=== PATIENT | female | born 1955 | race Caucasian/White ===

== ENCOUNTER 2016-12-18 07:31 | Day surgery (SDC) | payer MEDICARE ==
[~2016-12-18 07:31] MED LIST: HYDROCODONE-APA1 TAB PO; LEXAPRO10 MG PO; OCUVITE TABLET1 TA1 PO; SYNTHROID88 MCG PO; TRAZODONE HCL50 MG PO
[2016-12-18 08:28] LABS: HEMATOCRIT 42.4 % (36.0-48.0); HEMOGLOBIN 13.9 g/dL (12-16); MCH 30.1 pg (26.0-34.0); MCHC 32.8 g/dL (31.0-37.0); MCV 91.8 fL (80.0-100.0); MEAN PLATELET VOLUME 10.8 fL (7.4-10.4); RBC 4.62 10x6/uL (4.00-5.40); RDW 13.7 % (11.5-14.5); WBC 5.3 10x3/uL (4.8-10.8)
[2016-12-18] MEDS ORDERED: DILAUDID2 MG PO (10:15)
== END 2016-12-18 11:35 | disposition home or self-care (01) ==
LOC: D.OPS 07:31
PROVIDERS: Anesthesiology
DX: M75.02 Adhesive capsulitis of left shoulder (principal); M25.512 Pain in left shoulder; E03.9 Hypothyroidism, unspecified; R00.1 Bradycardia, unspecified; Z01.812 Encounter for preprocedural laboratory examination

== ENCOUNTER 2017-02-22 16:00 | Emergency (ER) | payer MEDICARE ==
[2016-12-18 08:10] VITALS: BMI 27.5
[~2017-02-22 16:00] MED LIST changes: +DILAUDID2 MG PO
== END 2017-02-22 18:44 | disposition home or self-care (01) ==
LOC: D.ER 16:00
DX: S89.92XA Unspecified injury of left lower leg, initial encounter (principal); W19.XXXA Unspecified fall, initial encounter; Y93.89 Activity, other specified; Y92.89 Other specified places as the place of occurrence of the external cause; F32.9 Major depressive disorder, single episode, unspecified; E03.9 Hypothyroidism, unspecified

== ENCOUNTER → 2018-05-04 20:33 | Outpatient (CLI) | payer MEDICARE ==
[2016-12-18 08:10] VITALS: BMI 27.5
== END | disposition home or self-care (01) ==
LOC: D.MAMMO 04-30 13:30
DX: Z12.31 Encounter for screening mammogram for malignant neoplasm of breast (principal)

== ENCOUNTER 2018-05-21 19:00 | Outpatient (CLI) | payer MEDICARE ==
[2016-12-18 08:10] VITALS: BMI 27.5
== END 2018-05-21 23:59 | disposition home or self-care (01) ==
LOC: D.MAMMO 19:00
DX: R92.8 Other abnormal and inconclusive findings on diagnostic imaging of breast (principal)

== ENCOUNTER 2020-10-22 05:10 | Observation (INO) | payer OTHER ==
[2020-10-17 11:10] LABS: BILIRUBIN NEGATIVE (NEGATIVE); KETONE NEGATIVE (NEGATIVE); NITRITE NEGATIVE (NEGATIVE)
[2020-10-17 11:11] LABS: BACTERIA FEW HPF (NONE SEEN); SQUAMOUS EPITHELIAL 0-5 HPF (0-4)
[2020-10-17 13:51] LABS: ANION GAP 11.5 mmol/L (8-16); CALCIUM 9.6 mg/dL (8.5-10.1); CARBON DIOXIDE 28.5 mmol/L (21.0-32.0); CREATININE - SERUM 1.2 mg/dL (0.6-1.3)
[2020-10-17 13:56] LABS: HEMATOCRIT 39.5 % (36.0-48.0); HEMOGLOBIN 12.6 g/dL (12-16); IMMATURE GRANULOCYTES 0.1 % (0-5); LYMPHOCYTE ABS# 1.57 10x3/uL (1.18-3.74); LYMPHOCYTES 22.4 % (15-50); MCH 29.4 pg (26.0-34.0); MCHC 31.9 g/dL (31.0-37.0); MCV 92.1 fL (80.0-100.0); MEAN PLATELET VOLUME 10.4 fL (7.4-10.4); MONOCYTES 9.6 % (2-11); NEUTROPHIL ABS# 4.48 10x3/uL (1.56-6.13); NEUTROPHILS 63.9 % (40-80); PLATELET COUNT 367 10x3/uL (130-400); RBC 4.29 10x6/uL (4.00-5.40); RDW 14.1 % (11.5-14.5)
[2020-10-17 14:00] LABS: APTT 32.3 SECONDS (22.8-39.4); INR 1.09 (0.85-1.17)
[2020-10-22] VITALS (13 sets, daily range): BP systolic 97–133; BP diastolic 48–70; Ht 162.6 cm; Wt 68.2 kg
[~2020-10-22] VITALS: Ht 162.6 cm; Wt 68.2 kg
--- NOTE | ~2020-10-22 | OP ---
PATIENT NAME: JANIE GALVAN MEDICAL RECORD: [id number] :53 LOCATION:D. D.1211 ADMISSION DATE:10/22/20 SURGEON: CELINE MAX MD DATE OF OPERATION: 10/22/2020 PREOPERATIVE DIAGNOSIS: Osteoarthritis, right knee. POSTOPERATIVE DIAGNOSIS: Osteoarthritis, right knee. PROCEDURE PERFORMED: Right total knee arthroplasty. INDICATIONS: Ms. Galvan is a 65-year-old female with history of right knee pain and arthritis. She has been dealing with this for some time now and symptoms are getting progressively worse. She has elected to undergo surgery for right total knee arthroplasty. Risks, benefits, and alternatives of surgery were discussed with the patient and consent was obtained. DESCRIPTION OF PROCEDURE: The patient was met in the holding area where her identity and confirmation of procedure was performed. The right lower extremity was marked. She was taken to the operating room where she was placed supine on the operating table. Anesthesia was administered. Tourniquet was applied to the right thigh and the right leg was prepped and draped in a sterile fashion. The patient received preoperative antibiotics as well as TXA and a timeout was performed prior to initiating the case. Upon initiation of the case, leg was exsanguinated and the tourniquet was raised. Total tourniquet time was approximately 90 minutes. A medial parapatellar approach was utilized for exposure. The knee was placed in flexion. An incision was made over the anterior knee, dissecting down to the extensor mechanism. The quad tendon was then split along its medial border curved medial around the patella and down the medial border of the patellar tendon. The knee was then taken into extension. Tissue from the posterior fat pad of the patella and over the anterior distal femur was excised. Flap tissue off the medial tibial plateau was elevated and a portion of the medial meniscus was excised. The patella was everted and the knee was replaced in flexion. Retractors were placed medial and lateral. The cruciate ligaments were excised and Vasiliy's line was marked. We then drilled our femoral tunnel and placed our intramedullary femoral guide. The distal femoral cutting block was pinned into position. The distal femur cut was then completed. The femur was sized to a size 4 and the 4-in-1 cutting block was pinned into place. Our anterior, posterior, and chamfer cuts were completed. The bony pieces were removed and osteophytes were removed from around the distal femur. Our trial femoral box cut was then placed and pinned into position. A box cut was completed using a reciprocating saw and osteotome. The bony pieces were removed and we then turned our attention to the tibia. PCL retractor was placed. The remainder of the medial and lateral menisci were excised. Extramedullary tibial guide was placed and adjusted for alignment taking 4 mm off the medial tibial plateau. Tibial cutting block was pinned into position and alignment was confirmed. We then completed our proximal tibial cut. The bony piece was removed and the tibia was sized to a size 3. The tibial plate was pinned into position. We then placed our femoral trial and trialed with a size 9 and 10 polyethylene. Size 10 poly had good fit and stability throughout range of motion. We then turned our attention to the patella. The patella was everted. Cautery was used around the circumference. Patella was cut to the floor of the lateral facet, sized to a size 29 and drilled. The patella was everted. The knee was replaced into flexion. Our poly and femoral roll trial was removed. Tibia was retracted anteriorly and OPERATIVE REPORT [id number] JANIE GALVAN prepared using the punch. The tibial trial was also removed and the laminar senior support analyst was inserted. Osteophytes were removed posterior aspect of the femur, both medial and lateral. Knee was then taken into extension, irrigated thoroughly with saline. Joint solution was injected around the capsule proximal tibia and the distal femur. The knee was replaced into flexion and the bony ends were dried. Final components were cemented into place. Trial poly was placed. The knee was held in full extension while the cement was allowed to dry. The patella was held with the patellar clamp. Excess cement was removed throughout this process. Once the cement was dry, the knee again taken through range of motion and felt to have good fit and stability with the size 10 poly and our final size 10 posterior stabilized poly was placed and tapped into position. It was again taken through range of motion, had good fit and stability throughout. Knee was irrigated thoroughly with saline. A drain was placed in the lateral gutter. The extensor mechanism was then closed with Vicryl suture. Subcutaneous tissues were irrigated thoroughly with saline. Subcutaneous tissue was closed with 2-0 Vicryl and the skin was closed with belinda. A sterile dressing was placed. The patient was turned back over to anesthesia where she was awakened, extubated, and taken to recovery room in stable condition. POSTOPERATIVE PLAN: The patient is going to be admitted for routine postoperative care. We started 24 hours of antibiotics. Will be started on DVT prophylaxis tomorrow. Physical therapy will be consulted to assist with mobilization, weightbearing as tolerated, right lower extremity. PLAN: Home with home health upon discharge. ANESTHESIA: Spinal with peripheral nerve block. COMPLICATIONS: None. ESTIMATED BLOOD LOSS: 50 mL. TRANSINT:[id number] Voice Confirmation ID: [id number] DOCUMENT ID: [id number] CELINE MAX MD CC: [id number] DICTATION DATE: 10/22/201811 LOSS PREVENTION ASSOCIATE: 10/22/20 2305 ADM IN [place] [id number] [place] [id number]
[~2020-10-22 05:10] MED LIST changes: +BI-FLEX PO; +ELDERBERRY PO; +HYDROCODON-ACE1 EAC7 PO; +VITAMIN D325 MC1 PO
--- NOTE | 2020-10-22 19:00 | NUR ---
PATIENT RESTING IN BED WITH NO S/S OF DISTRESS. GUEST AT BEDSIDE. VSS. PLACED PATIENT ON CPM TO RIGHT KNEE. PLACED ICE PACK TO PATIENT'S KNEE. PATIENT DENIES OTHER NEEDS AT THIS TIME. BED IN LOWEST POSITION, CALL LIGHT WITHIN REACH, AND BED ALARM ON. ENCOURAGED PATIENT TO CALL WITH NEEDS.
--- NOTE | 2020-10-22 20:22 | NUR ---
ADMINISTERED MEDS PER ORDERS. PATIENT KJ WELL. ENCOURAGED TO CALL WITH NEEDS.
[2020-10-23 00:49] VITALS: BP 101/50
[2020-10-23 05:05] VITALS: BP 107/56
--- NOTE | 2020-10-23 07:00 | NUR ---
RECEIVED PT SITTING UP IN BED. CPM IN PLACE TO RIGHT LOWER EXTREMITY. CPM REMOVED AT THIS TIME PER MD ORDER OF 2 HOUR PLACEMENT. REPORTS PAIN 3/10 AT THIS TIME, BUT VOICES "ITS NOT BAD." SCD AND JEANINE HOSE IN PLACE TO BILAT EXTREMITIES. DRESSING TO RIGHT LOWER EXTREMITY C/D/I. IV TO LEFT HAND WITH 1/2 NS @ 100ML/HR INFUSING VIA PUMP. SITE WITHOUT REDNESS OR EDEMA. DAVOL DRAIN INTACT TO RIGHT KNEE WITH SCANT AMOUNT OF BLODDY DRAINAGE. DENIES FURTHER NEEDS AT THIS TIME. CL WITHIN REACH. ENCOURAGED TO CALL WITH NEEDS. CONTINUE POC
[2020-10-23 07:32] LABS: HEMATOCRIT 32.5 % (36.0-48.0); HEMOGLOBIN 10.1 g/dL (12-16); MCH 28.7 pg (26.0-34.0); MCHC 31.1 g/dL (31.0-37.0); MCV 92.3 fL (80.0-100.0); MEAN PLATELET VOLUME 10.3 fL (7.4-10.4); RBC 3.52 10x6/uL (4.00-5.40); RDW 13.9 % (11.5-14.5); WBC 9.8 10x3/uL (4.8-10.8)
[2020-10-23 08:11] VITALS: BP 125/58
--- NOTE | 2020-10-23 18:11 | MORECARE ---
CASE MANAGEMENT DISCHARGE SUMMARY PATIENT: JANIE GALVAN UNIT: [id number] ADM DATE: 10/22/20 AGE: 65 : 54 SEX: F ROOM/BED: D.1211 AUTHOR: MARSHALL HELM PHYSICIAN: REFERRING PHYSICIAN: CELINE MAX MD DATE OF SERVICE: 10/23/20 Discharge Plan Patient Name: JANIE GALVAN Facility: [facility]:[place] : 1955 Planned Disposition: Home with Home Health Anticipated Discharge Date: 10/25/20 Discharge Date: Expected LOS: 3 Initial Reviewer: [email or web address] Initial Review Date: 10/22/2020 Generated: 10/23/20 7:10 pm External Providers External Provider: [facility] Next Contact Date: Service Request Date: Service Type: Resolution: Reviewer: Comments: Patient Name: JANIE GALVAN Page [phone] at 1811 All edits/amendments must be made on the electronic document DICTATION DATE: 10/23/201809 COIL WRAPPER: JESSICA 10/23/201809 RPT#: [id number] CO DATE: STATUS: ADM IN [place] [address] [place] [address] END OF REPORT
--- NOTE | 2020-10-23 18:18 | MORECARE ---
CASE MANAGEMENT DISCHARGE SUMMARY PATIENT: JANIE GALVAN UNIT: [id number] ADM DATE: 10/22/20 AGE: 65 : 54 SEX: F ROOM/BED: D.1211 AUTHOR: ALICJA,DOC PHYSICIAN: REFERRING PHYSICIAN: CELINE MAX MD DATE OF SERVICE: 10/23/20 Discharge Plan Patient Name: JANIE GALVAN Facility: [facility]:[place] : 1955 Planned Disposition: Home with Home Health Anticipated Discharge Date: 10/25/20 Discharge Date: Expected LOS: 3 Initial Reviewer: REEMA Initial Review Date: 10/22/2020 Generated: 10/23/20 7:17 pm Comments DCP- Discharge Planning Updated by REEMA: Juan Antonio Quan on 10/23/20 5:[address] CM met with patient to complete DC plan and to evaluate needs. Patient lives at home with family. Patient stated that she does not know which Home Health with PT service to use but would like any service that will come to [facility]. Patient stated that she will need a walker and bedside commode. Patient declined SNF and IPR. [facility] for [facility] and [facility] signed and placed on chart. Patient voiced no other needs at this time and is satisfied with DC plan. Clinicals faxed to [facility] and Equipment order faxed to [facility]. Spoke with Juan Antonio of [facility], equipment will be delivered in am. Spoke with Stephie of [facility], SOC will be determined in morning after clinicals are evaluated. Transportation provider at discharge will be with daughter, Radha Parrish ([phone]). DC IMM delivered, explained, signed by the patient, and placed in chart. Signed form also left with the patient. CM will continue to follow and will assist as needed with dc plans/needs. DCPIA - Discharge Planning Initial Assessment Updated by REEMA: Juan Antonio Quan on 10/23/20 6:11 pm * Is the patient Alert and Oriented? Yes * How many steps to enter\exit or inside your home? 5/0 * PCP MARIANO * [facility] * Preadmission Environment Home with Family * ADLs Independent * Equipment None * Other Equipment n/a * List name and contact numbers for known caregivers / representatives who currently or will assist patient after discharge: Noreen Parrish (dtr)[phone] * Verbal permission to speak to the caregivers and representatives has been obtained from the patient. Yes * Community resources currently utilized None * Please name any agencies selected above. n/a * Additional services required to return to the preadmission environment? Yes * Can the patient safely return to the preadmission environment? Yes * Has this patient been hospitalized within the prior 30 days at any hospital? No Coverage Notice Reviewer: [email or web address] Quan Notice Issued Date-Time: 10/23/2020 17:00 Notice Type: IM Discharge Notice Notice Delivered To: Patient Relationship to Patient: Self Front End Developer Javascript Html Css Name: Delivery Method: HAND - Hand Delivered Claudette Days: Prior Verbal Notification: Recipient Understood Notice: Yes Recipient Signature: Yes Med Rec Note Co-signed by Attending: Coverage Notice Comment: DC IMM delivered, explained, signed by the patient, and placed in chart. Reviewer: [id number] Bereket Quan Notice Issued Date-Time: 10/23/2020 17:00 Notice Type: Patient Choice Letter Notice Delivered To: Patient Relationship to Patient: Self Front End Developer Javascript Html Css Name: Delivery Method: HAND - Hand Delivered Claudette Days: Prior Verbal Notification: Recipient Understood Notice: Yes Recipient Signature: Yes Med Rec Note Co-signed by Attending: Coverage Notice Comment: [facility] Last DP export: 10/23/20 5:11 pm Patient Name: JANIE GALVAN Page [phone] at 1818 All edits/amendments must be made on the electronic document DICTATION DATE: 10/23/201816 HOTEL CASINO FLOORPERSON: JESSICA 10/23/201816 RPT#: [id number] DC DATE: STATUS: ADM IN [facility] [address] [place] [address] END OF REPORT
--- NOTE | 2020-10-23 19:44 | MORECARE ---
CASE MANAGEMENT DISCHARGE SUMMARY PATIENT: JANIE GALVAN UNIT: [id number] ADM DATE: 10/22/20 AGE: 65 : 54 SEX: F ROOM/BED: D.1211 AUTHOR: ALICJA,DOC PHYSICIAN: REFERRING PHYSICIAN: CELINE MAX MD DATE OF SERVICE: 10/23/20 Discharge Plan Patient Name: JANIE GALVAN Facility: [facility]:[place] : 1955 Planned Disposition: Home with Home Health Anticipated Discharge Date: 10/25/20 Discharge Date: Expected LOS: 3 Initial Reviewer: REEMA Initial Review Date: 10/22/2020 Generated: 10/23/20 8:43 pm Comments DCP- Discharge Planning Updated by REEMA: Juan Antonio Quan on 10/23/20 5:[address] CM met with patient to complete DC plan and to evaluate needs. Patient lives at home with family. Patient stated that she does not know which Home Health with PT service to use but would like any service that will come to [facility]. Patient stated that she will need a walker and bedside commode. Patient declined SNF and IPR. [place] for [facility] [facility] and [facility] signed and placed on chart. Patient voiced no other needs at this time and is satisfied with DC plan. Clinicals faxed to [facility] and Equipment order faxed to [facility] Spoke with Juan Antonio of [employer] equipment will be delivered in am. Spoke with Stephie of [facility], SOC will be determined in morning after clinicals are evaluated. Transportation provider at discharge will be with daughter, Radha Parrish ([phone]). DC IMM delivered, explained, signed by the patient, and placed in chart. Signed form also left with the patient. CM will continue to follow and will assist as needed with dc plans/needs. DCPIA - Discharge Planning Initial Assessment Updated by REEMA: Juan Antonio Quan on 10/23/20 6:11 pm * Is the patient Alert and Oriented? Yes * How many steps to enter\exit or inside your home? 5/0 * PCP MARIANO * Pharm[facility] * Preadmission Environment Home with Family * ADLs Independent * Equipment None * Other Equipment n/a * List name and contact numbers for known caregivers / representatives who currently or will assist patient after discharge: Noreen Parrish (dtr)[phone] * Verbal permission to speak to the caregivers and representatives has been obtained from the patient. Yes * Community resources currently utilized None * Please name any agencies selected above. n/a * Additional services required to return to the preadmission environment? Yes * Can the patient safely return to the preadmission environment? Yes * Has this patient been hospitalized within the prior 30 days at any hospital? No External Providers External Provider: OTHER-OTHER Next Contact Date: Service Request Date: Service Type: Resolution: Reviewer: Comments: Coverage Notice Reviewer: [id number] Bereket Quan Notice Issued Date-Time: 10/23/2020 17:00 Notice Type: IM Discharge Notice Notice Delivered To: Patient Relationship to Patient: Self Lubrication Worker Name: Delivery Method: HAND - Hand Delivered Claudette Days: Prior Verbal Notification: Recipient Understood Notice: Yes Recipient Signature: Yes Med Rec Note Co-signed by Attending: Coverage Notice Comment: DC IMM delivered, explained, signed by the patient, and placed in chart. Reviewer: [id number] Bereket Quan Notice Issued Date-Time: 10/23/2020 17:00 Notice Type: Patient Choice Letter Notice Delivered To: Patient Relationship to Patient: Self Lubrication Worker Name: Delivery Method: HAND - Hand Delivered Claudette Days: Prior Verbal Notification: Recipient Understood Notice: Yes Recipient Signature: Yes Med Rec Note Co-signed by Attending: Coverage Notice Comment: [facility] Last DP export: 10/23/20 5:17 pm Patient Name: JANIE GALVAN Page [phone] at 1944 All edits/amendments must be made on the electronic document DICTATION DATE: 10/23/201943 RADIO COMMUNICATION COORDINATOR: JESSICA 10/23/201943 RPT#: [id number] DC DATE: STATUS: ADM IN [facility] [address] [place] [address] END OF REPORT
[2020-10-23 20:00] VITALS: BP 113/77
--- NOTE | 2020-10-23 20:00 | NUR ---
ALERT RESTING IN BED CPM IN USE DENIES PAIN OR NEEDS AT THIS TIME, SEE SHIFT ASSESSMENT CALL LIGHT IN REACH
--- NOTE | 2020-10-23 21:00 | NUR ---
SITTING UP IN CHAIR AT BEDSIDE HAS TAKEN SELFT OFF CPM AND WALKED AROUND BED TO CHAIR, INSTRUCTED TO CALL FOR ASSISTANCE TO PREVENT FALLS, STATES IM DOING FINE AND WAS VERY CAREFUL
[2020-10-24 04:30] VITALS: BP 123/69
--- NOTE | 2020-10-24 08:00 | NUR ---
AWAKE AND ALERT. ORIENTED X3. SITTING UP IN CHAIR AT BEDSIDE EATING BREAKFAST. LUNGS ARE CLEAR BILATERALLY, NO COUGH NOTED. SKIN IS INTACT WITHOUT REDNESS EXCEPT INCISION TO RIGHT KNEE WHICH HAS A DRY INTACT DRESSING IN PLACE. SL TO LEFT HAND IS PATENT WITHOUT REDNESS AT INSERTION SITE. DENIES NEEDS.
--- NOTE | 2020-10-24 09:08 | NUR ---
REQUESTED AND GIVEN ONE HYDROCODONE PO FOR C/O RIGHT KNEE PAIN LEVEL 6. WILL MONITOR.
[2020-10-24 09:12] LABS: HEMATOCRIT 34.9 % (36.0-48.0); HEMOGLOBIN 11.3 g/dL (12-16); MCH 29.4 pg (26.0-34.0); MCHC 32.4 g/dL (31.0-37.0); MCV 90.9 fL (80.0-100.0); MEAN PLATELET VOLUME 10.4 fL (7.4-10.4); RBC 3.84 10x6/uL (4.00-5.40); RDW 13.6 % (11.5-14.5)
--- NOTE | 2020-10-24 09:15 | MORECARE ---
CASE MANAGEMENT DISCHARGE SUMMARY PATIENT: JANIE GALVAN UNIT: [id number] ADM DATE: 10/22/20 AGE: 65 : 53 SEX: F ROOM/BED: D.1211 AUTHOR: ALICJA,DOC PHYSICIAN: REFERRING PHYSICIAN: CELINE MAX MD DATE OF SERVICE: 10/24/20 Discharge Plan Patient Name: JANIE GALVAN Facility: [facility]:[place] : 1955 Planned Disposition: Home with Home Health Anticipated Discharge Date: 10/25/20 Discharge Date: Expected LOS: 3 Initial Reviewer: [email or web address] Initial Review Date: 10/22/2020 Generated: 10/24/20 10:14 am Comments DCP- Discharge Planning Updated by [email or web address]: Lelo Valdovinos on 10/24/20 8:[address] NARANJO explained, signed, given, copy placed in MR. She anticipates going home today. Her walker and BSC have been delivered to her room. I will notify [facility] and fax DC paperwork on DC. DCP- Discharge Planning Updated by [email or web address]: Juan Antonio Quan on 10/23/20 5:[address] CM met with patient to complete DC plan and to evaluate needs. Patient lives at home with family. Patient stated that she does not know which Home Health with PT service to use but would like any service that will come to [place]. Patient stated that she will need a walker and bedside commode. Patient declined SNF and IPR. [place] for [facility] and [facility] signed and placed on chart. Patient voiced no other needs at this time and is satisfied with DC plan. Clinicals faxed to [facility] and Equipment order faxed to [facility]. Spoke with Juan Antonio of [facility], equipment will be delivered in am. Spoke with Stephie of [facility], SOC will be determined in morning after clinicals are evaluated. Transportation provider at discharge will be with daughter, Radha Parrish ([phone]). DC IMM delivered, explained, signed by the patient, and placed in chart. Signed form also left with the patient. CM will continue to follow and will assist as needed with dc plans/needs. DCPIA - Discharge Planning Initial Assessment Updated by [email or web address]: Juan Antonio Quan on 10/23/20 6:11 pm * Is the patient Alert and Oriented? Yes * How many steps to enter\exit or inside your home? 5/0 * PCP MARIANO * Pharmacy [facility] * Preadmission Environment Home with Family * ADLs Independent * Equipment None * Other Equipment n/a * List name and contact numbers for known caregivers / representatives who currently or will assist patient after discharge: Noreen Parrish (dtr)[phone] * Verbal permission to speak to the caregivers and representatives has been obtained from the patient. Yes * Community resources currently utilized None * Please name any agencies selected above. n/a * Additional services required to return to the preadmission environment? Yes * Can the patient safely return to the preadmission environment? Yes * Has this patient been hospitalized within the prior 30 days at any hospital? No Coverage Notice Reviewer: [id number] Bereket Quan Notice Issued Date-Time: 10/23/2020 17:00 Notice Type: IM Discharge Notice Notice Delivered To: Patient Relationship to Patient: Self Rubber Goods Inspector Tester Name: Delivery Method: HAND - Hand Delivered Claudette Days: Prior Verbal Notification: Recipient Understood Notice: Yes Recipient Signature: Yes Med Rec Note Co-signed by Attending: Coverage Notice Comment: DC IMM delivered, explained, signed by the patient, and placed in chart. Reviewer: [id number] Bereket Quan Notice Issued Date-Time: 10/23/2020 17:00 Notice Type: Patient Choice Letter Notice Delivered To: Patient Relationship to Patient: Self Rubber Goods Inspector Tester Name: Delivery Method: HAND - Hand Delivered Claudette Days: Prior Verbal Notification: Recipient Understood Notice: Yes Recipient Signature: Yes Med Rec Note Co-signed by Attending: Coverage Notice Comment: [facility] Reviewer: [id number] Bereket Valdovinos Notice Issued Date-Time: 10/24/2020 9:00 Notice Type: Medicare Outpatient Observation Notice Notice Delivered To: Patient Relationship to Patient: Self Rubber Goods Inspector Tester Name: Delivery Method: HAND - Hand Delivered Claudette Days: Prior Verbal Notification: Recipient Understood Notice: Yes Recipient Signature: Yes Med Rec Note Co-signed by Attending: Coverage Notice Comment: NARANJO explained, signed, given, copy placed in MR Last DP export: 10/23/20 6:44 pm Patient Name: JANIE GALVAN Page [phone] at 0915 All edits/amendments must be made on the electronic document DICTATION DATE: 10/24/20914 DRESSMAKER OR TAILOR: JESSICA 10/24/20914 RPT#: [id number] DC DATE: STATUS: ADM IN [facility] [address] [place] [address] END OF REPORT
[2020-10-24 09:19] LABS: WBC 7.2 10x3/uL (4.8-10.8)
--- NOTE | 2020-10-24 11:00 | NUR ---
UP IN CHIAR AT BEDSIDE. NO C/O AT THIS TIME. DENIES NEEDS.
[2020-10-24 11:08] VITALS: BP 123/57
[2020-10-24 12:00] VITALS: BP 120/50
--- NOTE | 2020-10-24 15:00 | NUR ---
RESTING QUIETLY IN BED. DENIES NEEDS. ANXIOUS TO GO HOME.
--- NOTE | 2020-10-24 15:19 | NUR ---
WALKED 150 FT MIN ASSIT WITH A WALKER
--- NOTE | 2020-10-24 16:10 | NUR ---
DISHCARGED TO HOME AMBULATORY WITH FAMILY. DISCHARGE INSTRUCTIONS GIVEN BOTH VERBALLY AND WRITTEN. ALL QUESTIONS ANSWERED. PATIENT VERBALIZED UNDERSTANDING OF SAME. SL TO LEFT HAND D/C WITH CATHETER INTACT. DR HAZEL'S NURSE HERE SPOKE WITH PATIENT RE DRESSING CHANGED. ORDERS RECEIVED. COPY SENT WITH PATIENT ON D/C PAPERWORK. ALL QUESTIONS ANSWERED. NEEDED PRESCRIPTIONS GIVEN TO PATIENT. ALL BELONGINGS WITH PATIENT.
--- NOTE | 2020-10-24 16:25 | MORECARE ---
CASE MANAGEMENT DISCHARGE SUMMARY PATIENT: JANIE GALVAN UNIT: [id number] ADM DATE: 10/22/20 AGE: 65 : 53 SEX: F ROOM/BED: D.1211 AUTHOR: ALICJADOC PHYSICIAN: REFERRING PHYSICIAN: CELINE MAX MD DATE OF SERVICE: 10/24/20 Discharge Plan Patient Name: JANIE GALVAN Facility: [facility]:[place] : 1955 Planned Disposition: Home with Home Health Anticipated Discharge Date: 10/25/20 Discharge Date: Expected LOS: 3 Initial Reviewer: [email or web address] Initial Review Date: 10/22/2020 Generated: 10/24/20 5:24 pm Comments DCP- Discharge Planning Updated by [email or web address]: Lelo Valdovinos on 10/24/20 3:[address] Patient Name: JANIE GALVAN Encounter No: [id number] : 1955 Primary Insurance: [id number] Anticipated DC Date: 10-25-2020 Planned Disposition: Home with Home Health External Planned Provider: : DCP follow-up note: Patient in agreement with discharge plan. No changes to plan. I notified Ray with [facility] of discharge today, DC order, summary and med list faxed. Case management will follow and assist as needed. Lelo Valdovinos DCP- Discharge Planning Updated by [email or web address]: Lelo Valdovinos on 10/24/20 8:[address] NARANJO explained, signed, given, copy placed in MR. She anticipates going home today. Her walker and BSC have been delivered to her room. I will notify [facility] and fax DC paperwork on DC. DCP- Discharge Planning Updated by [id number]: Juan Antonio Quan on 10/23/20 5:[address] CM met with patient to complete DC plan and to evaluate needs. Patient lives at home with family. Patient stated that she does not know which Home Health with PT service to use but would like any service that will come to [facility]. Patient stated that she will need a walker and bedside commode. Patient declined SNF and IPR. [facility] for [facility] and [facility] signed and placed on chart. Patient voiced no other needs at this time and is satisfied with DC plan. Clinicals faxed to [employer] and Equipment order faxed to [employer]. Spoke with Juan Antonio of [employer], equipment will be delivered in am. Spoke with Stephie of [employer], SOC will be determined in morning after clinicals are evaluated. Transportation provider at discharge will be with daughter, Radha Parrish ([phone]). DC IMM delivered, explained, signed by the patient, and placed in chart. Signed form also left with the patient. CM will continue to follow and will assist as needed with dc plans/needs. DCPIA - Discharge Planning Initial Assessment Updated by REEMA: Juan Antonio Quan on 10/23/20 6:11 pm * Is the patient Alert and Oriented? Yes * How many steps to enter\exit or inside your home? 5/0 * PCP MARIANO * [facility] * Preadmission Environment Home with Family * ADLs Independent * Equipment None * Other Equipment n/a * List name and contact numbers for known caregivers / representatives who currently or will assist patient after discharge: Noreen Parrish (dtr)[phone] * Verbal permission to speak to the caregivers and representatives has been obtained from the patient. Yes * Community resources currently utilized None * Please name any agencies selected above. n/a * Additional services required to return to the preadmission environment? Yes * Can the patient safely return to the preadmission environment? Yes * Has this patient been hospitalized within the prior 30 days at any hospital? No Coverage Notice Reviewer: REEMA Quan Notice Issued Date-Time: 10/23/2020 17:00 Notice Type: IM Discharge Notice Notice Delivered To: Patient Relationship to Patient: Self Bindery Machine Tender Name: Delivery Method: HAND - Hand Delivered Claudette Days: Prior Verbal Notification: Recipient Understood Notice: Yes Recipient Signature: Yes Med Rec Note Co-signed by Attending: Coverage Notice Comment: DC IMM delivered, explained, signed by the patient, and placed in chart. Reviewer: [id number] Bereket Quan Notice Issued Date-Time: 10/23/2020 17:00 Notice Type: Patient Choice Letter Notice Delivered To: Patient Relationship to Patient: Self Bindery Machine Tender Name: Delivery Method: HAND - Hand Delivered Claudette Days: Prior Verbal Notification: Recipient Understood Notice: Yes Recipient Signature: Yes Med Rec Note Co-signed by Attending: Coverage Notice Comment: Lencho Ring HHS/PT Reviewer: [id number] Bereket Valdovinos Notice Issued Date-Time: 10/24/2020 9:00 Notice Type: Medicare Outpatient Observation Notice Notice Delivered To: Patient Relationship to Patient: Self Bindery Machine Tender Name: Delivery Method: HAND - Hand Delivered Claudette Days: Prior Verbal Notification: Recipient Understood Notice: Yes Recipient Signature: Yes Med Rec Note Co-signed by Attending: Coverage Notice Comment: MARCELLA explained, signed, given, copy placed in MR Last DP export: 10/24/20 8:15 am Patient Name: JANIE GALVAN Page [id number] at 1625 All edits/amendments must be made on the electronic document DICTATION DATE: 10/24/201623 BARTENDER SERVER: JESSICA 10/24/201623 RPT#: [id number] DC DATE: STATUS: ADM IN [facility] [address] [place] [address] END OF REPORT
--- NOTE | 2020-10-25 14:42 | MORECARE ---
CASE MANAGEMENT DISCHARGE SUMMARY PATIENT: JANIE GALVAN UNIT: [id number] ADM DATE: 10/23/20 AGE: 65 : 53 SEX: F ROOM/BED: D.1211 AUTHOR: MARSHALL HELM PHYSICIAN: REFERRING PHYSICIAN: CELINE MAX MD DATE OF SERVICE: 10/25/20 Discharge Plan Patient Name: JANIE GALVAN Facility: [facility]:[place] : 1955 Planned Disposition: Home with Home Health Anticipated Discharge Date: 10/25/20 Discharge Date: 10/24/2020 Expected LOS: 3 Initial Reviewer: [id number] Initial Review Date: 10/22/2020 Generated: 10/25/20 3:41 pm Comments DCP- Discharge Planning Updated by [email or web address]: Lelo Valdovinos on 10/24/20 3:[address] Patient Name: JANIE GALVAN Encounter No: [id number] : 1955 Primary Insurance: NOVASY[employer]CR Anticipated DC Date: 10-25-2020 Planned Disposition: Home with Home Health External Planned Provider: : DCP follow-up note: Patient in agreement with discharge plan. No changes to plan. I notified Ray with [facility] of discharge today, DC order, summary and med list faxed. Case management will follow and assist as needed. Lelo Valdovinos DCP- Discharge Planning Updated by [id number]: Lelo Valdovinos on 10/24/20 8:[address] NARANJO explained, signed, given, copy placed in MR. She anticipates going home today. Her walker and BSC have been delivered to her room. I will notify [facility] and fax DC paperwork on DC. DCP- Discharge Planning Updated by [email or web address]: Juan Antonio Quan on 10/23/20 5:[address] CM met with patient to complete DC plan and to evaluate needs. Patient lives at home with family. Patient stated that she does not know which Home Health with PT service to use but would like any service that will come to [facility]. Patient stated that she will need a walker and bedside commode. Patient declined SNF and IPR. [facility] for [facility] and [facility] signed and placed on chart. Patient voiced no other needs at this time and is satisfied with DC plan. Clinicals faxed to [employer] and Equipment order faxed to [employer]. Spoke with Juan Antonio of [employer], equipment will be delivered in am. Spoke with Stephie of [employer], SOC will be determined in morning after clinicals are evaluated. Transportation provider at discharge will be with daughter, Radha Parrish ([phone]). DC IMM delivered, explained, signed by the patient, and placed in chart. Signed form also left with the patient. CM will continue to follow and will assist as needed with dc plans/needs. DCPIA - Discharge Planning Initial Assessment Updated by REEMA: Juan Antonio Quan on 10/23/20 6:11 pm * Is the patient Alert and Oriented? Yes * How many steps to enter\exit or inside your home? 5/0 * PCP MARIANO * [facility]acy [facility] * Preadmission Environment Home with Family * ADLs Independent * Equipment None * Other Equipment n/a * List name and contact numbers for known caregivers / representatives who currently or will assist patient after discharge: Noreen Parrish (dtr)[phone] * Verbal permission to speak to the caregivers and representatives has been obtained from the patient. Yes * Community resources currently utilized None * Please name any agencies selected above. n/a * Additional services required to return to the preadmission environment? Yes * Can the patient safely return to the preadmission environment? Yes * Has this patient been hospitalized within the prior 30 days at any hospital? No Coverage Notice Reviewer: [id number] Quan Notice Issued Date-Time: 10/23/2020 17:00 Notice Type: IM Discharge Notice Notice Delivered To: Patient Relationship to Patient: Self Underwear Finisher Name: Delivery Method: HAND - Hand Delivered Claudette Days: Prior Verbal Notification: Recipient Understood Notice: Yes Recipient Signature: Yes Med Rec Note Co-signed by Attending: Coverage Notice Comment: DC IMM delivered, explained, signed by the patient, and placed in chart. Reviewer: [id number] Bereket Quan Notice Issued Date-Time: 10/23/2020 17:00 Notice Type: Patient Choice Letter Notice Delivered To: Patient Relationship to Patient: Self Underwear Finisher Name: Delivery Method: HAND - Hand Delivered Claudette Days: Prior Verbal Notification: Recipient Understood Notice: Yes Recipient Signature: Yes Med Rec Note Co-signed by Attending: Coverage Notice Comment: Lencho Ring HHS/PT Reviewer: [id number] Bereket Valdovinos Notice Issued Date-Time: 10/24/2020 9:00 Notice Type: Medicare Outpatient Observation Notice Notice Delivered To: Patient Relationship to Patient: Self Underwear Finisher Name: Delivery Method: HAND - Hand Delivered Claudette Days: Prior Verbal Notification: Recipient Understood Notice: Yes Recipient Signature: Yes Med Rec Note Co-signed by Attending: Coverage Notice Comment: MARCELLA explained, signed, given, copy placed in MR Last DP export: 10/24/20 3:25 pm Patient Name: JANIE GALVAN Page [phone] at 1442 All edits/amendments must be made on the electronic document DICTATION DATE: 10/25/20 1441 DISASTER RECOVERY SPECIALIST: JESSICA 10/25/20 1441 RPT#: [id number] DC DATE:10/24/20 STATUS: DIS IN [facility] [address] [facility] [place] [address] END OF REPORT
== END 2020-10-24 16:10 | disposition home or self-care (01) ==
LOC: OBSVTIME → D.OPS 05:10 → D.M3 10:29 → D.OPS 10:30 → D.M3 10:30 → OBSVTIME 10-23 15:41 → D.M3 10-24 16:10
PROVIDERS: ADMIT Orthopaedic Surgery; ATTEND Orthopaedic Surgery
DX: M17.11 Unilateral primary osteoarthritis, right knee (principal)